=== PATIENT | female | born 1995 | race Caucasian/White ===

== ENCOUNTER → 2024-09-30 11:43 | Outpatient (BNVA) | payer BC, MEDICAID, SELFPAY | PROVIDERS: PCP Registered Nurse; Visit Provider Registered Nurse | DX: R51.9 Headache, unspecified (principal); E53.8 Deficiency of other specified B group vitamins | CPT/HCPCS: 80053; 82607; 83036; 85025 ==

== ENCOUNTER 2024-10-13 13:52 | Outpatient (CLI) | payer BC, MEDICAID, SELFPAY ==
--- NOTE | 2024-10-13 14:30 | CT_ITS ---
WS: [id number] CT HEAD NONCONTRAST HISTORY: R51.9 - Headache, unspecified TECHNIQUE: Contiguous axial imaging performed through the brain. Bone and soft tissue windows. Sagittal and coronal reformats reviewed. All CT scans at [facility] use at least one of these dose optimization techniques: automated exposure control; mA and/or kV adjustment per patient size (includes targeted exams where dose is matched to clinical indication); or iterative reconstruction. DLP: 1013.18 mGy.cm COMPARISON: None available. No acute intracranial hemorrhage, midline shift or mass effect. No atrophy or prior infarcts or herniation. 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 Pineal gland cyst would be better evaluated by MRI. There is a suggestion of a 5 to 6 mm pineal gland cyst. No mass effect. Ventricles: Normal size with no hydrocephalus. No inferior displacement of the cerebellar tonsils. Paranasal sinuses: As visualized are clear. Mastoid air cells: Well pneumatized. Calvarium and scalp: Skull is intact with no soft tissue edema or swelling. CT/CT head wo con* [id number] IMPRESSION: Negative head CT.
== END 2024-10-13 13:53 | disposition home or self-care (01) ==
LOC: RAD 13:53
PROVIDERS: PCP Registered Nurse; Visit Provider Registered Nurse
DX: R51.9 Headache, unspecified (principal); R29.6 Repeated falls
CPT/HCPCS: 70450

== ENCOUNTER 2024-10-27 12:31 | Outpatient (CLI) | payer BC, MEDICAID, SELFPAY ==
--- NOTE | 2024-10-27 13:00 | MR_ITS ---
WS: [id number] MRI HEAD WITHOUT CONTRAST TECHNIQUE: Sagittal T1, T2 axial, T2 axial FLAIR, axial and coronal T1 images, axial susceptibility weighted imaging, axial diffusion weighted images, and coronal T2 images were obtained. 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 This has a nonaggressive appearance and is likely incidental. No mass effect. Normal tectum. No restricted diffusion to suggest acute ischemia. Normal brenner-white differentiation. No suspicious intracranial signal abnormalities. No hydrocephalus. Normal posterior fossa. Normal vascular flow voids at the skull base. No extra-axial fluid collections. Paranasal sinuses and mastoid air cells are well aerated. Normal posterior nasopharynx. Normal optic chiasm and pituitary infundibulum. Temporal lobes and hippocampal formations are normal in appearance. No hemosiderin. No other suspicious findings. MR/MR head wo con* [id number] IMPRESSION: 1. Small lobulated bilobed pineal gland cyst described above. This is likely i ncidental and has a nonaggressive appearance. No mass effect. 2. No suspicious intracranial signal abnormalities. 3. No hemosiderin. 4. Normal posterior fossa. 5. No other acute findings.
== END 2024-10-27 12:32 | disposition home or self-care (01) ==
LOC: RAD 12:32
PROVIDERS: PCP Registered Nurse; Visit Provider Registered Nurse
DX: E34.8 Other specified endocrine disorders (principal); D35.4 Benign neoplasm of pineal gland
CPT/HCPCS: 70551

== ENCOUNTER 2024-11-19 10:54 | Outpatient (CLI) | payer BC, MEDICAID, SELFPAY ==
--- NOTE | 2024-11-19 10:59 | XR_ITS ---
WS: [id number] Exam: XR cervical spine 3V* [id number] Date/Time of Exam: 11/19/2024 10:59 AM Reason For Exam: M54.12 - Radiculopathy, cervical region DLP: No fracture or malalignment. There is straightening and slight reversal of the normal cervical lordosis. The dens is intact. Posterior elements appear normal. Anterior soft tissues are unremarkable. XR/XR cervical spine 3V* [id number] IMPRESSION: 1. Straightening of the C-spine. No fracture or other significant finding.
== END 2024-11-19 10:55 | disposition home or self-care (01) ==
LOC: RAD 10:55
PROVIDERS: PCP Registered Nurse; Visit Provider Registered Nurse
DX: M54.12 Radiculopathy, cervical region (principal); R93.7 Abnormal findings on diagnostic imaging of other parts of musculoskeletal system
CPT/HCPCS: 72040

== ENCOUNTER → 2024-12-20 10:22 | Outpatient (BNVA) | payer BC, MEDICAID, SELFPAY | PROVIDERS: PCP Registered Nurse; Visit Provider Registered Nurse | DX: N39.0 Urinary tract infection, site not specified (principal) | CPT/HCPCS: 81000; 87086 ==